=== PATIENT | female | born 1995 | race African-American/Black ===

== ENCOUNTER 2019-03-28 08:07 | Emergency (ER) | payer OTHER ==
[~2019-03-28] VITALS: Ht 170.2 cm; Wt 72.6 kg
[2019-03-28 08:27] LABS: URINE BLOOD 1+ (Negative); URINE CLARITY CLEAR; URINE COLOR YELLOW; URINE GLUCOSE-RANDOM* NEGATIVE (Negative); URINE KETONES 3+ (Negative); URINE LEUKOCYTES NEGATIVE (Negative); URINE NITRITE NEGATIVE (Negative); URINE PROTEIN (DIPSTICK) 1+ (Negative); URINE SPECIFIC GRAVITY >= 1.030 (1.005-1.035)
[2019-03-28 08:34] LABS: URINE BILIRUBIN NEGATIVE (Negative)
[2019-03-28 08:35] LABS: ICTOTEST (BILI CONFIRMATORY) Negative (Negative)
[2019-03-28 08:36] LABS: AMP/METHAMP Negative (Negative); BARBITURATES Negative (Negative); BENZODIAZEPINES Negative (Negative); COCAINE Negative (Negative); METHADONE Negative (Negative); OPIATES Negative (Negative); PCP Negative (Negative)
[2019-03-28 08:40] LABS: BACTERIA 1-9 Few /HPF (None Seen); CASTS None Seen /LPF (None Seen); CRYSTALS None Seen /LPF (None Seen); MUCUS 4-6 Moderate strn/LPF (None Seen); SQUAMOUS 0-3 Few /LPF (0-3); URINE RBC 0-2 Rare /HPF (0-2); URINE WBC 0-5 Rare /HPF (0-5)
[2019-03-28 10:44] LABS: ABSOLUTE NEUTROPHILS 7.4 thou/uL (1.4-8.2); BASOPHILS 0.6 % (0.0-2.0); EOSINOPHILS 0.2 % (0.0-3.0); HEMATOCRIT 38.6 % (37.0-47.0); HEMOGLOBIN 12.5 gm/dL (12.0-15.0); LYMPHOCYTES 13.1 % (24.0-44.0); MCHC 32.3 g/dL (28.0-37.0); MCV 92.9 fL (80.0-100.0); MONOCYTES 8.5 % (1.0-8.0); PLATELET COUNT 276 thou/uL (150-400); POLYS 77.6 % (36.0-66.0); RBC 4.16 mil/uL (4.20-5.00); RDW 13.5 % (10.5-14.5); WBC 9.5 thou/uL (4.0-11.0)
[2019-03-28 10:47] LABS: ANION GAP 12 mmol/L (7-16); BUN 12 mg/dL (7-18); CALCIUM 9.2 mg/dL (8.5-10.1); CHLORIDE 106 mmol/L (98-107); CO2 28 mmol/L (21-32); CREATININE 0.9 mg/dL (0.6-1.0); GLUCOSE 84 mg/dL (74-106); POTASSIUM 3.3 mmol/L (3.5-5.1); SODIUM 146 mmol/L (136-145)
[2019-03-28 10:53] LABS: SGOT 25 U/L (15-37); SGPT 20 U/L (30-65); TOTAL BILIRUBIN 0.9 mg/dL (<0.1-1.0); TOTAL PROTEIN 7.7 g/dL (6.4-8.2)
[2019-03-28 10:55] LABS: SALICYLATE < 2.8 mg/dL (2.8-20.0)
--- NOTE | 2019-03-28 16:42 | EKG ---
[address] [address] [place] [address] ELECTROCARDIOGRAM REPORT Name: DANIEL CORONEL Room #: REG HECTOR Snyder#: [id number] ������������������ Admission: 03/28/19 ������������������ Attend Phys: Discharge: ������������������ Date of : [birth year] Report #: [id number] ����������������������������������������������������������������� [id number] THIS REPORT FOR: //name// [facility] ED Test Date: 2019-03-28 Test Time: 10:03:36 Pat Name: DANIEL CORONEL Department: Room: Gender: F Laser Cutter: JONNA : 1995 Requested By: Lillian Almodovar Order Number: [id number] MD: Brijesh Keith Measurements Intervals [place] Rate: 95 P: 90 [place]: 132 QRS: 97 QRSD: 91 T: 61 QT: 349 QTc: 439 Interpretive Statements Sinus rhythm Borderline right axis deviation ST elev, probable normal early repol pattern No previous ECG available for comparison Electronically Signed On 03-28-2019 16:42:11 CDT by Brijesh Keith [email or web address] ��������������������������������������������� <ELECTRONICALLY SIGNED> ���������������������������������������� By: Brijesh Keith MD ��������������������������������������������� 03/28/19 1642 1003 1003 MD KENNEDI Hardy
[2019-03-28 17:45] VITALS: BP 135/90
[2019-03-29] MEDS ORDERED: XANAX 1 MG TABLE1 MG PO (07:54)
== END 2019-03-28 18:01 | disposition home or self-care (01) ==
LOC: ER 08:07 → EDBD 08:07 → ER 18:01
PROVIDERS: Emergency Medicine Emergency Medical Services
DX: F19.10 Other psychoactive substance abuse, uncomplicated (principal); F17.210 Nicotine dependence, cigarettes, uncomplicated

== ENCOUNTER → 2019-03-28 | Emergency (ER) | payer OTHER ==
[~2019-03-28] VITALS: Ht 177.8 cm; Wt 72.6 kg
[~2019-03-28] MED LIST: XANAX 1 MG TABLE1 MG PO
[2019-03-29 05:56] LABS: AMP/METHAMP Negative (Negative); BARBITURATES Negative (Negative); BENZODIAZEPINES Negative (Negative); COCAINE Negative (Negative); METHADONE Negative (Negative); OPIATES Negative (Negative); PCP Negative (Negative)
[2019-03-30 18:48] VITALS: BP 160/76
== END ==
LOC: ER 20:07
PROVIDERS: Emergency Medicine
DX: F23 Brief psychotic disorder (principal); F17.210 Nicotine dependence, cigarettes, uncomplicated